=== PATIENT | male | born 1980 | race Caucasian/White ===

== ENCOUNTER 2017-07-11 19:40 | Emergency (ER) | payer OTHER ==
[~2017-07-11] VITALS: Ht 193 cm; Wt 129.3 kg
[~2017-07-11 19:40] MED LIST: ZOLOFT
[2017-07-11] MEDS ORDERED: PAXIL10 MG (19:53)
[2017-07-11] MEDS ORDERED: HYDROCODONE-AP1 EAC6 PO (20:39)
[2017-07-11 20:54] VITALS: BP 149/68
== END 2017-07-11 20:57 | disposition home or self-care (01) ==
LOC: M.ERS 19:40
DX: M25.512 Pain in left shoulder (principal); F32.9 Major depressive disorder, single episode, unspecified; F17.200 Nicotine dependence, unspecified, uncomplicated

== ENCOUNTER 2018-06-24 17:43 | Emergency (ER) | payer BC ==
[~2018-06-24] VITALS: Ht 195.6 cm; Wt 131.5 kg
[~2018-06-24 17:43] MED LIST changes: +HYDROCODONE-AP1 EAC6 PO; +PAXIL10 MG
[2018-06-24] MEDS ORDERED: NORCO 5-325 TA1 EACH PO (18:17)
[2018-06-24 18:32] VITALS: BP 158/80
== END 2018-06-24 18:33 | disposition home or self-care (01) ==
LOC: M.ERS 17:43
DX: M79.622 Pain in left upper arm (principal); F32.9 Major depressive disorder, single episode, unspecified